=== PATIENT | male | born 2000 | race Caucasian/White ===

== ENCOUNTER 2021-09-29 01:24 | Emergency (ER) | payer MEDICAID, OTHER ==
[~2021-09-29] VITALS: Ht 172.7 cm; Wt 63.5 kg
[2021-09-29 01:36] VITALS: BP_SYST 153
[2021-09-29 03:52] VITALS: BP_SYST 135
== END 2021-09-29 03:52 ==
LOC: SED 01:24
DX: M54.9 Dorsalgia, unspecified (principal); V49.49XA Driver injured in collision with other motor vehicles in traffic accident, initial encounter; Y93.89 Activity, other specified; Y92.89 Other specified places as the place of occurrence of the external cause; Y99.8 Other external cause status
CPT/HCPCS: 99283